=== PATIENT | female | born 1990 | race Caucasian/White ===

== ENCOUNTER → 2017-12-04 18:25 | Observation (INO) ==
[2017-12-04 15:22] LABS: Bilirubin,Urine Negative (Negative); Blood,Urine Negative (Negative); Color,Urine Dark Yellow (Yellow); Glucose,Urine (UA) Normal (Normal); Ketones,Urine 80 mg/dL (Negative); Leukocyte Esterase,Urine Small (Negative); Nitrite,Urine Negative (Negative); Protein,Urine Trace mg/dL (Neg-Trace); Specific Gravity,Urine 1.028 (1.010-1.025); Urobilinogen,Urine Normal (Normal)
[2017-12-04 15:24] LABS: Bacteria,Urine Few per hpf (None-Few); Hyaline Casts,Urine None Seen per lpf (None-Few); RBC,Urine 15-30 per hpf (0-3); Squamous Epithelial Cell,Urine Many per lpf (None-Few)
[2017-12-04 15:29] LABS: Clarity,Urine Hazy (Clear)
[2017-12-04 15:34] LABS: Amphetamine Screen,Urine Negative ng/mL (Cutoff=1000); Barbiturate Screen,Urine Negative ng/mL (Cutoff=200); Benzodiazepines Screen,Urine Negative ng/mL (Cutoff=200); Cannabinoid Screen,Urine Negative ng/mL (Cutoff = 50); Cocaine Screen,Urine Negative ng/mL (Cutoff= 300); Opiate Screen,Urine Negative ng/mL (Cutoff=300); Phencyclidine Screen,Urine Negative ng/mL (Cutoff=25)
--- NOTE | 2017-12-04 16:07 | OB/GYN Progress Note ---
Date of Encounter: 12/04/17 Time of Encounter: 16:04 - Assessment and Plan (1) 36 weeks gestation of Current Visit: Yes Status: Acute admitted for observation (2) Nausea and vomiting during Current Visit: Yes Status: Acute Zofran ODT PO hydrate (3) Diarrhea Current Visit: Yes Status: Acute Immodium po Qualifiers: Diarrhea type: unspecified type Qualified Code(s): R19.7 - Diarrhea, unspecified (4) NST (non-stress test) reactive on surveillance Current Visit: Yes Status: Acute baseline 135 bpm moderate variability +15x15 accels no decels noted. Cat. 1 tracing Subjective - Subjective Principal diagnosis: Nausea, vomiting and diarrhea Interval history: Patient is a 27 y/o at 36w5d presents to labor and delivery with complaints of nausea, vomiting and diarrhea all day. Patient reports occasional contractions and +FM. Patient denies LOF or VB. Patient denies any urinary symptoms or headaches. Antepartum ROS: movement normal, contractions, no loss of fluid, no vaginal bleeding Objective - Exam FHR: auscultation normal, category 1 FHR comments: 135 bpm moderate variability +15x15 accels no decels noted. Occasional contractions. Cat. 1 tracing Auscultation: bilateral: normal Abdomen: Present: normal appearance, soft, gravid Cervical dilation: closed per RN Cervix effacement: 50 - Labs Labs: Abnormal lab results Urine Clarity Hazy (Clear) A 12/04/17 15:10 Ur Specific [place] 1.028 (1.010-1.025) H 12/04/17 15:10 Urine Ketones 80 mg/dL (Negative) H 12/04/17 15:10 Ur Leukocyte Esterase Small (Negative) H 12/04/17 15:10 Urine Microscopic RBC 15-30 per hpf (0-3) H 12/04/17 15:10 Urine Microscopic WBC 5-15 per hpf (0-3) H 12/04/17 15:10 Ur Squamous Epith Cells Many per lpf (None-Few) H 12/04/17 15:10 Ur Culture Indicated? NO. (NO) A 12/04/17 15:10
[~2017-12-04 18:25] MED LIST: Ondansetron ODT 4 MG TAB.RAPDIS SL PRN
== END | disposition home or self-care (01) ==
LOC: 1NENULAB
PROVIDERS: ADMIT Obstetrics & Gynecology; ATTEND Obstetrics & Gynecology

== ENCOUNTER 2017-12-26 03:54 | Inpatient (IN) ==
[2017-12-26] MEDS ORDERED: Ondansetron 4 MG/2 ML VIAL IVP PRN (04:03)
[2017-12-26] MEDS ORDERED: Naloxone 0.4 MG/ML INJ IVP PRN (04:03)
[2017-12-26] MEDS ORDERED: Metoclopramide 10 MG/2 ML VIAL IVP PRN (04:03)
[2017-12-26] MEDS ORDERED: *HR* Nalbuphine 10 MG/ML AMPUL IVP PRN (04:03)
[2017-12-26] MEDS ORDERED: Famotidine 20 MG/2 ML VIAL IVP PRN (04:03)
[2017-12-26] MEDS ORDERED: Oxytocin 20 units/ LR 1000 mL 20 UNIT/1,000 ML BAG IVC ONE (04:09)
--- NOTE | 2017-12-26 04:09 | OB/GYN History & Physical ---
Date of Encounter: 12/26/17 Time of Encounter: 04:06 Assessment and Plan (1) 39 weeks gestation of Current visit: Yes Status: Acute Patient admitted for delivery (2) Spontaneous onset of labor Current visit: Yes Status: Acute Patient admitted for delivery anticipate History of Present Illness Chief complaint: spontaneous Laor HPI: Ms. Cote is a 27 year old female @ 39w5d presents to labor and delivery with complaints of contractions that she started timing around 0200. Patient denies LOF or VB. Patient reports +FM. Patient denies any complications with current but does report a history of hemorrhage following last delivery. Blood type: AB+ Hep B: Nonreactive Rubella: Immune GBS: Negative Past Med Surg Social Fam HX - Past Medical History Source: patient Medical history: no medical history Psychiatric history: no psych history - Past Surgical History Surgical History: cholecystectomy, other (tonsillectomy, umbilical hernia repair , wisdom teeth) - Social History Smoking Status: Former smoker Smokeless Tobacco Status: No Alcohol use: none Drug use: none Activity Level: Independent ambulation Obstetrical History - Pregnancies : 2 Para: 1 Term: 1 : 0 Ab's: 0 Livin Review of System OB - Constitutional Constitutional ROS IM: no chills, no fever(s), no headache(s) - Cardiovascular Cardiovascular: no chest pain, no edema, no palpitations, no syncope - Respiratory Respiratory: no cough - Gastrointestinal Gastrointestinal: no cramping, no diarrhea, no heartburn - Genitourinary Genitourinary: no abnormal vaginal bleeding, no dysuria, no flank pain, no urinary frequency, no urinary urgency, no vaginal discharge, no vaginal odor, no vaginal pruritis Exam - Constitutional Constitutional: well developed, well nourished, average body habitus - HEENT HEENT: Normocephaly, Mucus Membranes Moist - Neck Neck exam: full ROM, supple - Lungs Respiratory exam: CTAB - Cardiovascular Cardiovascular exam: RRR, +S1, +S2 - Abdomen Abdomen: Present: bowel sounds normal, gravid, non tender - Extremities Extremities exam: full ROM, normal capillary refill, normal inspection Deep Tendon Reflex Grade: 2+ Normal - Cervix Dilation: 8 (Per RN ) Effacement: 100 Station: -1 - Uterus Uterus exam: Present: normal size, normal contour Results All other labs normal.
[2017-12-26] MEDS ORDERED: Ringers Solution, Lactated 1,000 ML IVC SCH (04:15)
[2017-12-26 04:21] LABS: Basophils # 0.1 K/mcL (0.0-0.2); Basophils % 0.4 %; Eosinophils # 0.2 K/mcL (0.0-0.6); Hematocrit 39.9 % (35.3-44.9); Hemoglobin 13.3 g/dL (11.5-15.4); Immature Platelets 5.5 % (1.1-6.1); Lymphocytes # 3.9 K/mcL (0.6-4.6); Lymphocytes % 26.2 %; Mean Corpuscular HGB Conc 33.3 g/dL (31.6-35.5); Mean Corpuscular Hemoglobin 29.2 pg (28.0-33.3); Mean Corpuscular Volume 87.7 fL (83.0-100.0); Mean Platelet Volume 10.8 fL (9.4-12.4); Monocytes # 1.5 K/mcL (0.0-1.3); Monocytes % 10.5 %; Neutrophils # 8.9 K/mcL (1.6-8.9); Platelet Count 266 K/mcL (140-400); Red Blood Count 4.55 M/mcL (3.82-4.97); Red Cell Distribution Width 13.9 % (11.5-14.5); Segmented Neutrophils % 60.9 %
--- NOTE | 2017-12-26 04:56 | OB/GYN Procedure Note ---
Delivery - Delivery Date: 12/26/17 Provider: Mirna Conroy Intrapartum events: none Delivery induction: none Delivery augmentation: rupture of membranes Delivery monitor: external FHT, external uterine Anesthesia: local (for repair) Quantitated Blood Loss: 50 - Infant (s) Infant A Delivery Date: 12/26/17 Delivery Time: 04:24 Presentation: vertex Position: HARLEEN Route of delivery: Gender: Male Viability: Viable Pounds: 8 Ounces: 12 at 1 minute: 7 at 5 mins: 9 Shoulder Dystocia: not encountered Placenta: spontaneous, uterine exploration Cord: nuchal cord (x1), 3 umbilical vessels, nuchal reduced - Repair Episiotomy: none Laceration Description: Labial (left labial) - Complications Delivery complications: meconium - Disposition Mom disposition: stable in LDR [place] disposition: stable in LDR - Comments Comments: Called to LDR patient complete and +1 with bulging membranes. Patient placed in foot plates and prepped for delivery. AROM small amount of meconium stained fluid noted and nursery and respiratory were notified. Under maternal effort patient spontaneously delivered a viable male. A nuchal cord x1 was noted and easily reduced. No shoulder dystocia was encountered. Infant was placed on maternal abdomen. Cord was clamped and cut after approximately 30 seconds and was taken to warmer per nursery staff. A small left labial laceration was noted. 1% lidocaine was used to anesthetize repair site. Placenta delivered spontaneously a small piece of membrane was noted and easily removed. Uterus was explored and no membranes were felt. Placenta appeared to be intact. The left labial laceration was then repaired with 4-0 vicryl. Patient tolerated well. FF @ U/1. EBL 50cc. All counts correct. Both Mother and infant stable in LDR for 2 hour recovery.
[2017-12-26] MEDS ORDERED: Benzocaine/Menthol 56 GM AEROSOL SPRAY TP PRN (06:33)
[2017-12-26] MEDS ORDERED: Oxytocin 20 units/ LR 1000 mL 20 UNIT/1,000 ML BAG IVC SCH (06:33)
[2017-12-26] MEDS ORDERED: Lanolin 7 G OINT...G. TP PRN (06:33)
[2017-12-26] MEDS ORDERED: Acetaminophen 325 MG TABLET PO PRN (06:33)
[2017-12-26] MEDS: Prenatal Vit/FA 1 EACH TABLET PO SCH (08:06)
[2017-12-26] MEDS: Ibuprofen 600 MG TABLET PO PRN ×2 (08:06→16:26)
[2017-12-27] MEDS: Ibuprofen 600 MG TABLET PO PRN ×2 (02:32→11:30)
[2017-12-27 07:48] VITALS: BP 112/71
[2017-12-27] MEDS: Prenatal Vit/FA 1 EACH TABLET PO SCH (08:25)
--- NOTE | 2017-12-27 09:53 | Discharge Summary ---
Date of Encounter: 12/27/17 Time of Encounter: 09:51 - Discharge Diagnosis (1) Vaginal delivery Priority: Primary Status: Acute Comments: Doing well. Ambulating and voiding without difficulty. Tolerating regular diet well. Lochia light and without clots,. Mild cramping well controlled with Ibuprofen. in arms, states bottle feeding well. Would like to breastfeed , but is tongue tied. referred infant to ENT. Desires to be discharged today. - Discharge Medications Prescriptions: Ibuprofen [Motrin] 600 mg PO Q6HR PRN #30 tablet PRN Reason: Cramping Breast Pump [BREAST PUMP] 1 each .ROUTE AD #1 each Docusate [Colace] 100 mg PO BID #20 capsule Home Medications: Pepcid 20 mg PO DAILY 12/26/17 [History] Acetaminophen [Tylenol] 650 mg PO Q6HR PRN tablet 12/27/17 [Rx] Benzocaine/Menthol [place] [Dermoplast [place]] 1 appl TP QID PRN aerosol 12/27/17 [Rx] Breast Pump [BREAST PUMP] 1 each .ROUTE AD #1 each 12/27/17 [Rx] Docusate [Colace] 100 mg PO BID #20 capsule 12/27/17 [Rx] Ibuprofen [Motrin] 600 mg PO Q6HR PRN #30 tablet 12/27/17 [Rx] Lanolin [Lansinoh] 1 appl TP TID PRN oint...g. 12/27/17 [Rx] Vit/FA 1 each PO DAILY tablet 12/27/17 [Rx] Allergies/Adverse Reactions: 3 Allergy/AdvReac Type Severity Reaction Status Date / Time No Known Allergies Allergy Verified 12/26/17 04:51 Data Procedures and tests throughout hospitalization: Laboratory Tests 12/26/17 04:07 WBC 14.7 H RBC 4.55 Hgb 13.3 Hct 39.9 MCV 87.7 MCH 29.2 MCHC 33.3 RDW 13.9 Plt Count 266 MPV 10.8 Immature Gran % 1.0 Seg Neutrophils % 60.9 Lymphocytes % 26.2 Monocytes % 10.5 Eosinophils % 1.0 Basophils % 0.4 Neutrophils # 8.9 Lymphocytes # 3.9 Monocytes # 1.5 H Eosinophils # 0.2 Basophils # 0.1 Immature Plt Fraction 5.5 Date of admission: 12/26/17 03:54 Primary care physician: PCP [facility] Consults: 12/26/17 06:33 Consult to Molding Plasterer [CONS] Routine Comment: Vaginal delivery, consult needed Consult to Sports Information Director [CONS] Routine Reason for SW Consult: cord stat for precip delivery Discharging clinician: Lexie Lin Anticipated date of discharge: 12/27/17 - Patient Status Disposition: Home, Self-Care Condition: Good Functional capacity at discharge: independent ambulation Overall status at discharge: patient is progressing back to baseline - Discharge Instructions Follow Up With: NONE,PCP [Primary Care Provider] - Mirna Conroy CNM [Non-Partnered Physician] - - Diet and Activity Activity: resume usual activities as tolerated Diet: regular diet Hospital Course Reason for admission: active labor Delivery: Episiotomy: none Laceration: none complications: none Discharge diagnosis: IUP at term delivered [place] baby: male Time spent discussing smoking cessation with patient: 3 to 10 minutes Time Attestation: Total time spent providing and/or coordinating discharge services: Time Spent: Less than 30 minutes Exam - Constitutional Vitals: Temp Pulse Resp BP Pulse Ox 97.6 F 76 20 112/71 98 12/27/17 07:47 12/27/17 07:47 12/27/17 07:47 12/27/17 07:47 12/27/17 07:47 General appearance IM: A&O X 3, pleasant, no acute distress, answers questions appropriately - Respiratory Respiratory exam: Present: CTAB - Cardiovascular Cardiovascular exam IM: Present: RRR - GI/Abdominal GI/Abdominal exam IM: normal bowel sounds - Rectal Rectal exam: deferred - Uterine Tone: Firm Uterus Position: At Umbilicus, Midline - Extremities Exam Extremities exam IM: Present: full ROM, radial pulses palpable and symmetrical - Neurological Exam Neurological exam: alert, normal gait, oriented X3
== END 2017-12-27 14:57 | disposition home or self-care (01) | DRG 775 ==
LOC: 1NENULAB 03:54 → MERGE 03:54 → 1NENUOBS 06:36
PROVIDERS: ADMIT Advanced Practice Midwife; ATTEND Advanced Practice Midwife